=== PATIENT | male | born 1955 | race Caucasian/White ===

== ENCOUNTER → 2017-04-04 | Outpatient (CLI) | payer OTHER ==
[~2017-04-04] MED LIST: MULTTAB58 PO; SERT25TA PO
--- NOTE | 2017-04-04 10:31 | DIAGNOSTIC IMAGING REPORT ---
CHEST 2 VIEWS ROUTINE CLINICAL HISTORY: COUGH dyspnea COMPARISON STUDY: No previous studies for comparison. FINDINGS: The bones soft tissues and hemidiaphragms are normal. The cardiomediastinal silhouette is normal. The lungs are clear. The pulmonary vasculature is normal. IMPRESSION: Negative chest. The above report was generated using voice recognition software. It may contain grammatical, syntax or spelling errors. Electronically signed by: Benja Jeronimo M.D. 04/04/2017 10:30 AM Dictated Date/Time: 04/04/2017 10:30 AM
== END | disposition home or self-care (01) ==
LOC: C.RAD1850 10:12
PROVIDERS: ATTEND Family Medicine
DX: R05 Cough (principal); R50.9 Fever, unspecified

== ENCOUNTER 2022-01-30 08:57 | Inpatient (IN) ==
[2022-01-30] MEDS ORDERED: dexAMETHasone**PF** 10 MG/ML VIAL IV ONE (09:27)
[2022-01-30] MEDS ORDERED: SODIUM CHLORIDE 0.9% 1000ML 1,000 ML IV ONE (09:28)
[2022-01-30] MEDS ORDERED: ALBUT/IPRATROP 3MG/0.5MG NEB 3 ML VIAL NEB ONE (09:28)
[2022-01-30] MEDS ORDERED: ACETAMINOPHEN 500 MG TAB PO STA (09:28)
--- NOTE | 2022-01-30 09:31 | Emergency Department Note ---
Impression & Plan Left lower lobe pneumonia, Respiratory syncytial virus (RSV), Hypoxia ED Provider Note Name: DANA CASTANEDA Age: 66 Sex: M Arrives Via: Walk-In Informant: Patient, ED Provider: Jose Mullen MD Chief Complaint: Shortness of breath Impression: As per impressions above Medical Decision Making: Pleasant 66-year-old gentleman with history of rectal cancer/CKD on no significant daily medications arrives for evaluation of 1 week of shortness of breath, fevers, chills, illness. Patient had started Augmentin and prednisone 3 days ago though continues to worsen. Is short of breath with exertion but on arrival he is febrile, mildly low O2 sats and a bit tachycardic though he is not hypotensive. Cultures lactate and laboratory work-up was obtained (I will note initial order for blood culture was not placed but it was obtained by nursing). He was given an hour-long nebulizer and steroids. Furthermore given some IV fluids given dehydration.He is RSV positive he has a left lower lobe pneumonia. Initially plan was to discharge home though unfortunately his oxygen saturation started to drop and at this point there is concern for underlying sepsis with respiratory component. He was given p.o. azithromycin along with some IV cefepime. His initial lactic acid is normal he does not have hypotension do not feel he needs a 30/kg bolus of fluid. Symptoms may all be secondary to RSV but with the finding of the left lower lobe infiltrate antibiotics are indicated. Hospitalist consulted for further management. Prior Medical Record and Triage/Nursing Notes reviewed by Me Additional history obtained from with and Son-in-law Differentials:Reactive airway disease, viral, pneumonia, pneumothorax, cardiac ischemia, pulmonary embolism, musculoskeletal, gastrointestinal, as well as other pathologies. Vital Signs: reviewed and remarkable for fever, tachy Interventions: Azithromycin 500 mg p.o., DuoNeb 1 hour, Decadron 10 mg IV, cefepime 2 g IV, 1 L normal saline bolus Labs:Reviewed and remarkable for mildly elevated white blood cell count, positive RSV Imagin view chest x-ray with a left lower lobe infiltrate Consults:Dr. Gutierrez of the [facility] service Plan: Disposition:Hospitalization. Condition: Good History of Present Illness:66-year-old gentleman arrives for evaluation of illness. Patient has been sick for the last week. Associated fevers, chills, congestion, cough, shortness of breath and generalized malaise/fatigue. He had been exposed to his grandchildren a few days prior to this who both tested positive for RSV. Patient has been taking prednisone and Augmentin without improvement for the last 3 days. Notes worsening symptoms this morning. Is having some chills. Does note worse with exertion better with rest. Cough is productive and discolored. No chest pain, syncope, abdominal pain, back pain, nausea, vomiting, headache or neck pain, urinary/bowel symptoms, leg swelling, calf pain, rashes nor other concerning signs or symptoms. Patient is on no immunosuppressants. ROS: See above HPI for pertinent positives & negatives. A total of 10 systems reviewed and were otherwise negative. Past Medical History:Rectal cancer, CKD Past Surgical History:Colectomy Family History:See Below Social History:See Below Home Medications:See Below Allergies:No known drug allergies Vitals:Blood Pressure: 148/92, Pulse 104, RR 18, T 38C, O2 93% on RA Physical Exam: GENERAL: Patient is tired appearing and in mild distress. EYES: No scleral icterus, unremarkable pupils. ENT: Mucous membranes moist, no nasal congestion. NECK: No masses appreciated, nomeningismus, trachea is midline. RESPIRATORY: Diffusely tight lung sounds with moderate wheezing and congestion throughout. CARDIOVASCULAR: Mild tachy.No murmurs, rubs, gallops appreciated. GASTROINTESTINAL: Abdomen soft, non-tender, no peritonitis.Bowel sounds positive.No masses appreciated. BACK: No midline tenderness, no CVA tenderness EXTREMITIES: Normal motion all extremities, no cyanosis, no edema. NEUROLOGIC: Alert and oriented, no acute motor or sensory deficits, no focal weakness, cranial nerves grossly intact. SKIN: No rash, no jaundice, no diaphoresis. PSYCH: Appropriate GCS: 15 ED Course: Times/Reassessments: Patient appears much better however his oxygen saturations are starting to drop. He is unable to ambulate without dropping his sats into the 80s. He is agreeable to hospitalization. Jose Mullen MD Past Med/Surg History Medical History Cataract Removed 2013 Chronic kidney disease, stage II (mild) Familial tremor Hordeolum Surgical History H/O colectomy History of biopsy (05/09/20) Rectal - Positive for Invasive Adenocarcinoma History of cataract extraction (2013) History of colonoscopy (05/09/20) [place] teeth extracted (1980) Family History Mother Hypertension H/O angioplasty Father , Passed age 68 of kidney failure Kidney disease Kidney stones Brother Hypertension H/O kidney transplant Brother No problems noted. Brother No problems noted. Brother No problems noted. Sister No problems noted. Daughter No problems noted. Daughter No problems noted. 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 [employer] How many Children do You have: 2 Feels Safe at Home: Yes Childhood Exposure to Second-Hand Smoke: No Diet Comment: Mediterrian Diet caffeine: No during the past year weight has: remained stable Dental Care, Regularly: Yes Physical Activity Frequency: Daily Physical Activity Frequency Comment: Walking Assistive Devices: None Allergies Allergies Allergy/AdvReac Type Severity Reaction Status Date / Time No Known Allergies Allergy Verified 01/30/22 15:33 Home Meds Home Medications Medication Instructions Recorded Confirmed cholecalciferol (vitamin D3) 25 25 mcg PO DAILY 05/19/20 01/30/22 mcg (1,000 unit) capsule melatonin 5 mg capsule 5 mg PO HS 05/19/20 01/30/22 amoxicillin 875 mg-potassium 1 tab PO BID 01/30/22 01/30/22 clavulanate 125 mg tablet multivitamin with minerals 1 tab PO DAILY 01/30/22 01/30/22 omega-3 fatty acids 1,000 mg 1,000 mg PO DAILY 01/30/22 01/30/22 capsule prednisone 20 mg tablet 20 mg PO DAILY 01/30/22 01/30/22 Previous Rx's Medication Instructions Recorded albuterol sulfate 90 mcg/actuation 2 inh inhalation Q4H PRN shortness 01/30/22 aerosol inhaler of breath or wheezing #8.5 grams azithromycin 250 mg tablet See Rx Instructions PO .COMPLEX #6 01/30/22 tabs Results & Data (ED) Vital Signs Vital Signs - 24 hr 01/30/22 09:07 01/30/22 10:05 01/30/22 10:15 Temperature 38 C H Temperature Source Temporal Artery Scan Pulse Rate 104 H Pulse Rate [Exercises] Pulse Rate [Right Finger] 94 H Pulse Rate from SpO2 Sensor Respiratory Rate 18 16 Respiratory Rate [Exercises] Respiratory Effort / Characteristics Non-Labored Spontaneous Blood Pressure 148/92 H Blood Pressure Mean 110 Pulse Oximetry 93 93 93 Pulse Oximetry [Exercises] Oxygen Delivery Method Room Air Room Air Room Air Sepsis Recent Fever Within 48 Hours Yes Sepsis New/Unexplained Change in Mental Status N/A Sepsis Action Taken by Nursing No Action Required Oxygen Flow Rate - Titration Pulse Oximetry Post Tiitration 01/30/22 10:00 01/30/22 10:30 01/30/22 11:00 Temperature Temperature Source Pulse Rate 96 H 95 H 104 H Pulse Rate [Exercises] Pulse Rate [Right Finger] Pulse Rate from SpO2 Sensor 96 H 95 H 103 H Respiratory Rate 22 18 18 Respiratory Rate [Exercises] Respiratory Effort / Characteristics Blood Pressure 143/88 H 127/77 126/75 Blood Pressure Mean 106 93 92 Pulse Oximetry 92 97 96 Pulse Oximetry [Exercises] Oxygen Delivery Method Room Air Nebulizer Nebulizer Sepsis Recent Fever Within 48 Hours Sepsis New/Unexplained Change in Mental Status Sepsis Action Taken by Nursing Oxygen Flow Rate - Titration Pulse Oximetry Post Tiitration 01/30/22 11:30 01/30/22 12:42 01/30/22 12:56 Temperature Temperature Source Pulse Rate 109 H Pulse Rate [Exercises] 127 H Pulse Rate [Right Finger] Pulse Rate from SpO2 Sensor 109 H Respiratory Rate 25 H Respiratory Rate [Exercises] 30 H Respiratory Effort / Characteristics Blood Pressure 118/67 Blood Pressure Mean 84 Pulse Oximetry 91 89 L Pulse Oximetry [Exercises] 87 L Oxygen Delivery Method Room Air Room Air Room Air Sepsis Recent Fever Within 48 Hours Sepsis New/Unexplained Change in Mental Status Sepsis Action Taken by Nursing Oxygen Flow Rate - Titration 2 Pulse Oximetry Post Tiitration 92 01/30/22 13:00 01/30/22 12:00 Temperature 36.8 C Temperature Source Oral Pulse Rate 108 H Pulse Rate [Exercises] Pulse Rate [Right Finger] Pulse Rate from SpO2 Sensor 107 H Respiratory Rate 21 Respiratory Rate [Exercises] Respiratory Effort / Characteristics Blood Pressure 122/67 Blood Pressure Mean 85 Pulse Oximetry 96 Pulse Oximetry [Exercises] Oxygen Delivery Method Room Air Sepsis Recent Fever Within 48 Hours Sepsis New/Unexplained Change in Mental Status Sepsis Action Taken by Nursing Oxygen Flow Rate - Titration Pulse Oximetry Post Tiitration Laboratory Data Result diagrams: 01/30/22 09:45 01/30/22 09:45 Lab Results 01/30/22 01/30/22 01/30/22 Range/Units 09:45 09:45 09:45 WBC 13.85 H (4.8-10.8) K/ul RBC 4.90 (4.63-6.08) M/uL Hgb 13.0 L (14.0-18.0) g/dl Hct 39.7 L (40.1-51.0) % MCV 81.0 (80.0-100.0) fL MCH 26.5 (25.0-34.0) pg MCHC 32.7 (32.0-36.0) g/dL RDW Std Deviation 42.3 (36.4-46.3) fL RDW Coeff of Daniel 14.5 (11.5-14.5) % Plt Count 294 (130-400) K/uL MPV 9.9 (9.4-12.4) fL Neutrophils % (Manual) 85 % Lymphocytes % (Manual) 9 % Monocytes % (Manual) 4 % Eosinophils % (Manual) 1 % Basophils % (Manual) 1 % Neutrophils # (Manual) 11.77 H (1.4-6.5) K/uL Lymphocytes # (Manual) 1.25 (1.2-3.4) K/uL Monocytes # (Manual) 0.55 (0.24-0.82) K/uL Eosinophils # (Manual) 0.14 (0-0.50) K/uL Basophils # (Manual) 0.14 (0-0.2) K/uL Dohle Bodies 1+ Polychromasia 1+ Sodium 136 (136-145) mmol/L Potassium 3.9 (3.5-5.1) mmol/L Chloride 101 (98-107) mmol/L Carbon Dioxide 24 (21-32) mmol/L Anion Gap 11 (3-11) BUN 25 H (6-23) mg/dl Creatinine 1.04 (0.6-1.4) mg/dl Est Cr Clr Drug Dosing 60.0 ml/min Est GFR ( Amer) 85.7 ml/min Est GFR (Non-Af Amer) 73.9 ml/min BUN/Creatinine Ratio 24.0 H (10-20) Glucose 124 H (70-99(Fasting)) mg/dl Lactate 1.1 (0.4-2.0) mmol/L Calcium 9.7 (8.5-10.1) mg/dl Administered Medications Discontinued Medications Acetaminophen (Acetaminophen 500 Mg Tab) 1,000 mg PO NOW STA Stop: 01/30/22 09:29 Last Admin: 01/30/22 09:38 Dose: 1,000 mg Documented By: VIRIDIANA Albuterol (Albut/Ipratrop 3mg/0.5mg Neb 3 Ml Vial) 12 ml NEB ONE ONE; Protocol Stop: 01/30/22 09:29 Last Admin: 01/30/22 10:14 Dose: 12 ml Documented By: BENOIT Azithromycin (Azithromycin 250 Mg Tab) 500 mg PO NOW ONE Stop: 01/30/22 11:36 Last Admin: 01/30/22 12:15 Dose: 500 mg Documented By: VIRIDIANA Dexamethasone Sodium Phosphate (DexamethasonePf 10 Mg/Ml Vial) 10 mg IV NOW ONE Stop: 01/30/22 09:28 Last Admin: 01/30/22 09:38 Dose: 10 mg Documented By: VIRIDIANA Sodium Chloride (Nss 1000ml) 1,000 mls @ 999 mls/hr IV .Q1H1M ONE Stop: 01/30/22 10:28 Last Infusion: 01/30/22 11:08 Dose: 0 mls/hr Documented By: Admin: 01/30/22 09:40 Dose: 999 mls/hr Documented By: VIRIDIANA Cefepime HCl (Maxipime) 2,000 mg in 20 mls @ 5 mls/min IV NOW STA; Protocol Stop: 01/30/22 12:41 Last Admin: 01/30/22 13:14 Dose: 5 mls/min Documented By: OAClaude Ioversol (Optiray 320 500ml) 113 ml IV ONCE ONE Stop: 01/30/22 14:16 Last Admin: 01/30/22 14:17 Dose: 113 ml Documented By: CHRISTINE Imaging Data Radiologist's Impression: Chest X-Ray 01/30/22 09:27 SINGLE VIEW CHEST CLINICAL HISTORY: Cough and fever. Dyspnea FINDINGS: An AP, portable, upright chest radiograph is compared to study dated 04/04/2017 and correlated with chest CT dated 05/11/2021. The cardiomediastinal silhouette is top normal for projection. There is left basilar consolidation. The right lung appears clear. No large pleural effusion or pneumothorax is seen. The bony thorax is grossly intact. IMPRESSION: There is left basilar consolidation. Correlate clinically for evidence of pneumonia/aspiration pneumonitis. Radiographic follow-up to resolution is recommended ACT 112: Negative or not required by law. Electronically signed by: Mikey Fletcher M.D. 01/30/2022 10:32 AM Discharge Plan Visit Data Chief Complaint: Shortness of Breath/Dyspnea Stated Complaint: SOB, FLU LIKE SYMPTOMS ED Provider: oJse Mullen Discharge Problem: Left lower lobe pneumonia, Respiratory syncytial virus (RSV), Hypoxia Patient Disposition: Home - Self-Care Condition: Good Discharge Instructions Interventions: ED Discharge Assessment Last Done: 01/30/22 15:28 : Left lower lobe pneumonia Qualifiers: Pneumonia type: due to unspecified organism Qualified Code(s): J18.9 - Pneu monia, unspecified organism
[2022-01-30 09:56] LABS: Hematocrit (blood only) 39.7 % (40.1-51.0); Mean Corpuscular Hemoglobin 26.5 pg (25.0-34.0); Mean Corpuscular Hgb Conc 32.7 g/dL (32.0-36.0); Mean Platelet Volume 9.9 fL (9.4-12.4); Platelet Count 294 K/uL (130-400); RDW Coefficient of Variation 14.5 % (11.5-14.5); RDW Standard Deviation 42.3 fL (36.4-46.3); White Blood Count 13.85 K/ul (4.8-10.8)
[2022-01-30 10:17] LABS: Calcium 9.7 mg/dl (8.5-10.1); Est GFR (African American) 85.7 ml/min; Est GFR (Non-African American) 73.9 ml/min; Potassium 3.9 mmol/L (3.5-5.1)
[2022-01-30 10:31] LABS: Basophils # (manual) 0.14 K/uL (0-0.2); Basophils % (manual) 1 %; Dohle Bodies 1+; Eosinophils # (manual) 0.14 K/uL (0-0.50); Eosinophils % (manual) 1 %; Lymphocytes # (manual) 1.25 K/uL (1.2-3.4); Lymphocytes % (manual) 9 %; Monocytes # (manual) 0.55 K/uL (0.24-0.82); Monocytes % (manual) 4 %; Neutrophils # (manual) 11.77 K/uL (1.4-6.5); Neutrophils % (manual) 85 %; Polychromasia 1+
--- NOTE | 2022-01-30 10:33 | XRay Report ---
SINGLE VIEW CHEST CLINICAL HISTORY: Cough and fever. Dyspnea FINDINGS: An AP, portable, upright chest radiograph is compared to study dated 04/04/2017 and correlat ed with chest CT dated 05/11/2021. The cardiomediastinal silhouette is top normal for projection. There is left basilar consolidation. The right lung appears clear. No large pleural effusion or pneumothor ax is seen. The bony thorax is grossly intact. IMPRESSION: There is left basilar consolidation. Correlate clinically for evidence of pneumonia/aspir ation pneumonitis. Radiographic follow-up to resolution is recommended ACT 112: Negative or not required by law. Electronically signed by: Mikey Fletcher M.D. 01/30/2022 10:32 AM
[2022-01-30 10:36] LABS: Influenza A virus by PCR Negative (Neg); Influenza B virus by PCR Negative (Neg); SARS CoV2 RNA(COVID-19) Ceph NEGATIVE (Negative)
[2022-01-30 10:46] LABS: RSV by PCR Positive (Neg)
[2022-01-30] MEDS ORDERED: AZITHROMYCIN 250 MG TAB PO ONE (11:35)
[2022-01-30] MEDS ORDERED: CEFEPIME 2,000 MG/20 ML VIAL IV STA (12:38)
--- NOTE | 2022-01-30 13:01 | History & Physical Report ---
Date of Service January 30, 2022 Assessment & Plan (1) Left lower lobe pneumonia: Plan: - Likely bacterial superimposed pneumonia after initial RSV infection. - WBC w/ left shift, febrile with cough and dyspnea x 1 week not alleviated with PO Augmentin and prednisone x 4 days. - CXR: Left basilar consolidation. - Chest CT ordered for better appreciation, as well as for PE ru/o given Ca history, hypoxia, tachycardia to 110-120s * Negative for PE * 4 mm nodule in the right lower lobe which appears new from prior exam, and a 5 mm nodule in the right upper lobe, stable from prior exam. - Treat as CAP w/ azithromycin and Rocephin, blood cultures collected prior to IV abx. - Currently requiring 2L NC to maintain SpO2 < 90% - Supportive care. (2) Respiratory syncytial virus (RSV): Plan: - 8 days of URI symptoms, after being exposed to several grandchildren RSV + - Contact precautions. - Supportive care. (3) Colon cancer: Plan: - Dx in 2020, s/p resection, chemo, radiation. (4) Chronic kidney disease, stage II (mild): Plan: - At baseline, monitor status, renally dose medications as able and avoid nephrotoxins. Plan - Admit to med/tele. - SCDs, Lovenox for VTE ppx. - Full Code. History of Present Illness Chief Complaint: sob, URI symptoms x one week Primary Care Provider: Nathalia English MD Mohini Sweet is a 66 y/o male with a PMH of rectal cancer s/p chemo, radiation, + resection as well as CKD2 who is presenting today for upper respiratory symptoms. For the past week he has had fever, chills, sinus congestion, muscle aches, and fatigue. He has been around several of his grandchildren who have tested positive for RSV. He was seen as an outpatient and placed on oral prednisone as well as Augmentin which he has been taking for the last 3 days without any improvement, in fact feels he is getting worse. He has developed a more persistent cough and feels short of breath with minimal activity. He has needed Tylenol for several days around the clock and feels sicker than he has ever been. No chest pain, palpitations, lightheadedness, or syncope. On presentation to the ED, he is febrile, 93% on room air at rest, however with minimal ambulation desats to mid 80s. Moderately hypertensive and borderline tachycardic 90s-110. In ED he is positive for RSV, also with WBC 13 w/ left shift, CXR shows stable left basilar consolidation. Otherwise labs largely unremarkable, lactate 1.1, renal function at baseline, without transaminitis, no electrolyte abnormalities. Allergies Allergy/AdvReac Type Severity Reaction Status Date / Time No Known Allergies Allergy Verified 01/30/22 15:33 Home Medications Medication Instructions Recorded Confirmed Type cholecalciferol (vitamin D3) 25 25 mcg PO DAILY 05/19/20 07/18/21 History mcg (1,000 unit) capsule melatonin 5 mg capsule 5 mg PO DAILY 05/19/20 07/18/21 History albuterol sulfate 90 mcg/actuation 2 inh inhalation Q4H PRN shortness 01/30/22 Rx aerosol inhaler of breath or wheezing #8.5 grams amoxicillin 875 mg-potassium 1 tab PO BID 01/30/22 01/30/22 History clavulanate 125 mg tablet azithromycin 250 mg tablet See Rx Instructions PO .COMPLEX #6 01/30/22 Rx tabs multivitamin with minerals 1 tab PO DAILY 01/30/22 01/30/22 History omega-3 fatty acids 1,000 mg 1,000 mg PO DAILY 01/30/22 01/30/22 History capsule prednisone 20 mg tablet 20 mg PO DAILY 01/30/22 01/30/22 History Past Med/Surg History Medical History Cataract Removed 2013 Chronic kidney disease, stage II (mild) Familial tremor [facility]ol[facility] Surgical History H/O colectomy History of biopsy (05/09/20) Rectal - Positive for Invasive Adenocarcinoma History of cataract extraction (2013) History of colonoscopy (05/09/20) [place] teeth extracted (1980) Family History Mother Hypertension H/O angioplasty Father , Passed age 68 of kidney failure Kidney disease Kidney stones Brother Hypertension H/O kidney transplant Brother No problems noted. Brother No problems noted. Brother No problems noted. Sister No problems noted. Daughter No problems noted. Daughter No problems noted. 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, 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 [employer] How many Children do You have: 2 Feels Safe at Home: Yes Childhood Exposure to Second-Hand Smoke: No Diet Comment: Mediterrian Diet caffeine: No during the past year weight has: remained stable Dental Care, Regularly: Yes Physical Activity Frequency: Daily Physical Activity Frequency Comment: Walking Assistive Devices: None Review of Systems Review of Systems: Constitutional: fever, chills, body aches, fatigue, weakness ongoing x 8 days Eyes: No diplopia, no worsening or blurred vision ENT: normal hearing, no trouble swallowing Respiratory: sob x 2 days with dry cough Cardiovascular: No chest pain, tightness or palpitations Abdomen: No pain, nausea, vomiting, diarrhea or constipation : Denies dysuria, hematuria, increased urgency/frequency, urinary retention Musculoskeletal: No joint pain, calf pain, swelling Neurologic: No weakness, numbness/tingling, or balance problems Psychiatric: No anxiety or depression Skin: No rash or itch Physical Exam Physical Exam: General: awake, alert, no apparent distress Head: Normocephalic, atraumatic ENT: PERRL, EOMI, no pharyngeal exudate, mucous membranes moist Chest:on 2L NC, with some rhonchi noted in b/l lower lung yo Cardiac: Regular rate and rhythm, no murmur, no JVD, normal peripheral pulses, good capillary refill Abdominal: NABS x 4 quadrants, soft, nontender to palpation, no rebound, guarding or tenderness Extremities: Normal inspection, no peripheral edema or erythema, calfs nontender to palpation Psych: Normal mood and affect Neuro: AAO x 3, strength intact bilaterally and rated 5/5, no motor deficits, speech is clear, no peripheral sensory deficits Skin: no rash or erythema Results & Data Results & Data ([facility]) Vital Signs (Past 12 Hours) Vital Signs Temp Pulse Pulse Pulse Resp Resp BP 01/30/22 12:42 127 H 30 H 01/30/22 11:30 109 H 25 H 118/67 01/30/22 11:00 104 H 18 126/75 01/30/22 10:30 95 H 18 127/77 01/30/22 10:00 96 H 22 143/88 H 01/30/22 10:15 94 H 16 01/30/22 10:05 01/30/22 09:07 38 C H 104 H 18 148/92 H Pulse Ox Pulse Ox O2 Del Method 01/30/22 12:42 87 L Room Air 01/30/22 11:30 91 Room Air 01/30/22 11:00 96 Nebulizer 01/30/22 10:30 97 Nebulizer 01/30/22 10:00 92 Room Air 01/30/22 10:15 93 Room Air 01/30/22 10:05 93 Room Air 01/30/22 09:07 93 Room Air Laboratory Results Abnormal lab results 01/30/22 01/30/22 01/30/22 Range/Units 09:45 09:45 Unknown WBC 13.85 H (4.8-10.8) K/ul Hgb 13.0 L (14.0-18.0) g/dl Hct 39.7 L (40.1-51.0) % Neutrophils # (Manual) 11.77 H (1.4-6.5) K/uL BUN 25 H (6-23) mg/dl BUN/Creatinine Ratio 24.0 H (10-20) Glucose 124 H (70-99(Fasting)) mg/dl RSV (RT-PCR) Positive A* (Neg) Diagnostic Findings Chest X-Ray 01/30/22 09:27 SINGLE VIEW CHEST CLINICAL HISTORY: Cough and fever. Dyspnea FINDINGS: An AP, portable, upright chest radiograph is compared to study dated 04/04/2017 and correlated with chest CT dated 05/11/2021. The cardiomediastinal silhouette is top normal for projection. There is left basilar consolidation. The right lung appears clear. No large pleural effusion or pneumothorax is seen. The bony thorax is grossly intact. IMPRESSION: There is left basilar consolidation. Correlate clinically for evidence of pneumonia/aspiration pneumonitis. Radiographic follow-up to resolution is recommended ACT 112: Negative or not required by law. Electronically signed by: Mikey Fletcher M.D. 01/30/2022 10:32 AM Code Status & VTE Plan Code Status Full Code. Supervising Physician Co-Signing Physician Notes Patient was seen and examined independently I discussed the case with Michelle ARANDA I reviewed pertinent past medical social family history and also the plan of care and agree with the plan of care. Patient's whole family had RSV initially from the grandchildren patient developed progressive shortness of breath and dyspnea was found to be hypoxic on presentation with left lower lobe infiltrate started on antibiotics for community-acquired pneumonia which may be secondary to the RSV. Patient feels remarkably better with supplemental oxygen. His cough is been productive of green sputum Pulm examination does have some rhonchi at the left base otherwise are clear he is tachycardic on presentation We will continue community-acquired pneumonia coverage while he convalesces from the RSV pending a CT angiogram of his chest Any exceptions will be noted below PG Care Time/CCT Total # of Minutes Spent Total Time Spent with Patient: Total time spent is greater than 50% in coordination of care (as documented) at patient's floor/unit and/or counseling patient: Coding Level of Care Code 63119 Initial Inpt Care Lvl 3 Diagnoses Left lower lobe pneumonia J18.9 Pneumonia type: due to unspecified organism Respiratory syncytial virus (RSV) B33.8 Colon cancer C18.9 Chronic kidney disease, stage II (mild) N18.2 (1) Left lower lobe pneumonia Pneumonia type: due to unspecified organism Qualified Code(s): J18.9 - Pneumonia, unspecified organism
[2022-01-30] MEDS ORDERED: OPTIRAY 320 500ml IV ONE (14:15)
--- NOTE | 2022-01-30 14:45 | CT Scan Report ---
CT angio chest PE protocol CLINICAL HISTORY: PE TECHNIQUE: Multidetector row helical CT of the chest was performed with angiographic protocol. Bhakta l and sagittal reformations were obtained. Coronal and sagittal MIPS were obtained from the axial mira a set and were submitted for review. Automated dose lowering techniques and/or adjustment according to patient size were utilized for this exam. CT DOSE: 355.35 mGy.cm Comparison: Comparison is made to CT chest 05/11/2021 FINDINGS: Lungs and pleura: Atelectasis is seen in the lower lobes. There is diffuse bronchial wall thickening. Focal scarring in the right upper lobe is unchanged. There is a 4 mm nodule in the right lower lobe (series 4 image 23) which appears new from prior exam, and a 5 mm nodule in the right upper lobe (ann ge 201), stable from prior exam. Heart and pericardium: Heart size is normal. No pericardial effusion. Vessels: No evidence of pulmonary embolism. Mediastinum and stuart: Unremarkable. Chest wall and lower neck: Unremarkable. Abdomen: A hiatal hernia is seen. Bones: Degenerative changes in the thoracic spine. IMPRESSION: 1. No evidence of pulmonary embolism. 2. Bilateral atelectasis and bronchial wall thickening compatible with infectious/inflammatory proce ss. Pulmonary nodules as above, a new 4 mm nodule in the right lower lobe may be infectious/inflammat ory, attention on follow-up is recommended. ACT 112: Negative or not required by law. Electronically signed by: Yosvany Blunt M.D. 01/30/2022 2:43 PM
[2022-01-30] MEDS ORDERED: ALUMINUM/MAGNESIUM SUSP 30 ML UDC PO PRN (15:27)
[2022-01-30] MEDS ORDERED: ACETAMINOPHEN 325 MG TAB PO PRN (15:27)
[2022-01-30] MEDS ORDERED: ONDANSETRON INJ 2 MG/ML 2 ML VIAL IV PRN (15:27)
[2022-01-30] MEDS ORDERED: AZITHROMYCIN 500 MG in DEXTROSE 5% 250 ML IV SCH (16:15)
[2022-01-30] MEDS: ENOXAPARIN INJ 40 MG/0.4 ML SYR SQ SCH (16:34)
[2022-01-30] MEDS: ALBUT/IPRATROP 3MG/0.5MG NEB 3 ML VIAL NEB SCH ×2 (17:32→20:29)
[2022-01-30] MEDS: guaiFENesin 600 MG TABCR PO SCH (20:42)
[2022-01-30] MEDS ORDERED: MELATONIN 3 MG TAB PO PRN (20:57)
[2022-01-31] MEDS: ENOXAPARIN INJ 40 MG/0.4 ML SYR SQ SCH (02:30)
[2022-01-31] MEDS: ALBUT/IPRATROP 3MG/0.5MG NEB 3 ML VIAL NEB SCH ×3 (07:44→14:54)
[2022-01-31] MEDS ORDERED: cefTRIAXone SODIUM 1,000 MG in DEXTROSE 5% 50 ML IV SCH (09:00)
[2022-01-31 11:15] VITALS: TEMP 97.5
[2022-01-31] MEDS: guaiFENesin 600 MG TABCR PO SCH (11:24)
[2022-01-31 14:58] VITALS: O2SAT 94
[2022-01-31] MEDS ORDERED: AZITHROMYCIN 250 MG TAB PO STA (15:15)
[2022-01-31 15:50] VITALS: BP 124/80
[2022-01-31 16:27] VITALS: PULSE 80
--- NOTE | 2022-02-06 14:51 | Discharge Summary ---
Date of Service January 31, 2022 Admission HPI Per Admitting Provider Mohini Sweet is a 66 y/o male with a PMH of rectal cancer s/p chemo, radiation, + resection as well as CKD2 who is presenting today for upper respiratory symptoms. For the past week he has had fever, chills, sinus congestion, muscle aches, and fatigue. He has been around several of his grandchildren who have tested positive for RSV. He was seen as an outpatient and placed on oral prednisone as well as Augmentin which he has been taking for the last 3 days without any improvement, in fact feels he is getting worse. He has developed a more persistent cough and feels short of breath with minimal activity. He has needed Tylenol for several days around the clock and feels sicker than he has ever been. No chest pain, palpitations, lightheadedness, or syncope. On presentation to the ED, he is febrile, 93% on room air at rest, however with minimal ambulation desats to mid 80s. Moderately hypertensive and borderline tachycardic 90s-110. In ED he is positive for RSV, also with WBC 13 w/ left shift, CXR shows stable left basilar consolidation. Otherwise labs largely unremarkable, lactate 1.1, renal function at baseline, without transaminitis, no electrolyte abnormalities. Principal Diagnosis left lower lobe pneumonia Discharge Exam General: awake, alert, no apparent distress Head: Normocephalic, atraumatic ENT: PERRL, EOMI, no pharyngeal exudate, mucous membranes moist Chest:on room air, chest sounds are clear Cardiac: Regular rate and rhythm, no murmur, no JVD, normal peripheral pulses, good capillary refill Abdominal: NABS x 4 quadrants, soft, nontender to palpation, no rebound, guarding or tenderness Extremities: Normal inspection, no peripheral edema or erythema, calfs nontender to palpation Psych: Normal mood and affect Neuro: AAO x 3, strength intact bilaterally and rated 5/5, no motor deficits, speech is clear, no peripheral sensory deficits Skin: no rash or erythema Discharge Data Allergies Allergy/AdvReac Type Severity Reaction Status Date / Time No Known Allergies Allergy Verified 02/04/22 10:19 Consultations 01/30/22 12:53 ED Decision to Admit Stat Ordered Studies 01/30/22 13:55 CT angio chest PE protocol Stat Hospital Course (1) Left lower lobe pneumonia: - Likely bacterial superimposed pneumonia after initial RSV infection. - WBC w/ left shift, febrile with cough and dyspnea x 1 week not alleviated with PO Augmentin and prednisone x 4 days. - CXR: Left basilar consolidation. - Chest CT ordered for better appreciation, as well as for PE ru/o given Ca history, hypoxia, tachycardia to 110-120s * Negative for PE * 4 mm nodule in the right lower lobe which appears new from prior exam, and a 5 mm nodule in the right upper lobe, stable from prior exam. * will defer followup to PCP - Treated as CAP w/ azithromycin and Rocephin, blood cultures collected prior to IV abx. -will discharge on cefuroxime/azithromycin -required 2L NC to maintain SpO2 < 90%; discharged back on room aire - Supportive care. (2) Respiratory syncytial virus (RSV): - 8 days of URI symptoms, after being exposed to several grandchildren RSV + - Contact precautions. - Supportive care. (3) Colon cancer: - Dx in 2020, s/p resection, chemo, radiation. (4) Chronic kidney disease, stage II (mild): - At baseline, monitor status, renally dose medications as able and avoid nephrotoxins. Plan - Admit to med/tele. - SCDs, Lovenox for VTE ppx. - Full Code. Total Time Total Time Spent Total Time Spent (In Minutes): 35 Discharge Plan Discharge Items Patient Disposition: Home - Self-Care Reason For Visit: RSV W/ SUPERIMPOSED PNEUMONIA Discharge Diagnosis: RSV Condition on Discharge: Good Activity: Resume your previous activity Non-emergency contact: Primary Care Provider Call non-emergency contact if: you have any medication questions Follow-up/Referrals: Nathalia English MD [Primary Care Provider] - 02/08/22 10:20 am Diet: Regular Addtl Attending Provider Instructions: You have been hospitalized for an acute medical problem. During your stay at [facility], we have made an effort to correct the problem that brought you to the hospital while keeping you as comfortable as possible. Medications were used to bring your condition under control and your discharge instructions will include directions for any medications you should take after leaving the hospital. Please make sure you see your Primary Care Provider as part of your follow up plan. Start the cefuroxime tomorrow morning, and take as directed until you have finished the course. At around 4 pm tomorrow, you can take the last dose of your azithromycin. Pending Studies at Discharge: No Stand-Alone Forms: My [facility], Smoking Cessation Medications and DC Order Prescriptions: New albuterol sulfate 90 mcg/actuation HFA aerosol inhaler 2 inh inhalation Q4H PRN (Reason: shortness of breath or wheezing) Qty: 8.5 0RF Rx Instructions: DID NOT START YET cefuroxime axetil 500 mg tablet 500 mg PO BID Qty: 10 0RF Rx Instructions: take first dose tomorrow. azithromycin 500 mg tablet 500 mg PO ONCE Qty: 1 0RF Rx Instructions: one table at 4pm 02/01/22 albuterol sulfate 90 mcg/actuation aerosol powdr breath activated 2 inh inhalation Q6H PRN (Reason: shortness of breath or wheezing) Qty: 1 0RF Continued cholecalciferol (vitamin D3) 25 mcg (1,000 unit) capsule 25 mcg PO DAILY melatonin 5 mg capsule 5 mg PO HS omega-3 fatty acids 1,000 mg Capsule 1,000 mg PO DAILY multivitamin with minerals Tablet 1 tab PO DAILY Discontinued amoxicillin-pot clavulanate 875-125 mg tablet 1 tab PO BID Rx Instructions: STARTED 01/27/22 FOR 10 DAYS. Discharge Orders: Discharge Order (Routine); Ordered 01/31/22 Ordered By: Thad Travis Admission Data Admit Date/Time: 01/30/22 13:05 Attending Provider: Thad Travis Admit Provider: Beau Gutierrez Primary Care Provider: Nathalia English Other Interventions: Discharge Summary Assessment (RN) Last Done: 01/31/22 15:48 Coding Level of Care Code D/C DAY MANAGEMENT >30 MINS Diagnoses Left lower lobe pneumonia J18.9 Pneumonia type: due to unspecified organism Respiratory syncytial virus (RSV) B33.8 Colon cancer C18.9 Chronic kidney disease, stage II (mild) N18.2
== END 2022-01-31 17:12 | disposition home or self-care (01) | DRG 195 ==
LOC: ED 08:57 → EDINP 13:05 → SUATTDRO 13:05 → 2W 15:28
DX: N18.2 Chronic kidney disease, stage 2 (mild); J15.9 Unspecified bacterial pneumonia; Z79.899 Other long term (current) drug therapy; R09.02 Hypoxemia; Z90.49 Acquired absence of other specified parts of digestive tract; Z92.3 Personal history of irradiation; Z85.038 Personal history of other malignant neoplasm of large intestine; J06.9 Acute upper respiratory infection, unspecified; Z92.21 Personal history of antineoplastic chemotherapy; B97.4 Respiratory syncytial virus as the cause of diseases classified elsewhere